=== PATIENT | male | born 1950 | race Caucasian/White ===

== ENCOUNTER 2024-08-16 14:16 | Inpatient (IN) | payer MEDICARE ==
[~2024-08-16] VITALS: Ht 177.8 cm; Wt 80.2 kg
[2024-08-16 21:30] VITALS: BP 154/80; PULSE 71; RESP 18; TEMP 98.5; O2SAT 98
[2024-08-16] MEDS ORDERED: MELATONIN 5 MG TABLET PO PRN (22:45)
[2024-08-16] MEDS ORDERED: BISACODYL 10 MG RECTAL RECTAL SUPPOSITORY PR PRN (23:15)
[2024-08-16] MEDS: DOCUSATE SODIUM 250 MG CAPSULE PO SCH (23:15)
[2024-08-16] MEDS: ETHYL ALCOHOL 62% ANTISEPTIC NASAL SANITIZER 0.6 ML AMPUL NASAL SCH (23:41)
[2024-08-16] MEDS: MELATONIN 5 MG TABLET PO SCH (23:42)
[2024-08-16] MEDS: FAMOTIDINE 20 MG TABLET PO SCH (23:42)
[2024-08-16] MEDS: CEPHALEXIN MONOHYDRATE 500 MG CAPSULE PO SCH (23:44)
[2024-08-16] MEDS: HYDROCORTISONE SOD SUCC 100 MG/2 ML VIAL IVP SCH (23:44)
[2024-08-16] MEDS: QUEtiapine FUMARATE 25 MG TABLET PO SCH (23:44)
[2024-08-16] MEDS: ACETAMINOPHEN 325 MG TABLET PO SCH (23:46)
[2024-08-17 00:06] LABS: APPEARANCE,URINE CLEAR (CLEAR); BILIRUBIN,URINE NEGATIVE (NEGATIVE); COLOR,URINE YELLOW (YELLOW); GLUCOSE, URINE (UA) NEGATIVE (NEGATIVE); KETONES,URINE NEGATIVE (NEGATIVE); LEUKOCYTE ESTERASE ,URINE NEGATIVE (NEGATIVE); NITRATE,URINE NEGATIVE (NEGATIVE); OCCULT BLOOD,URINE NEGATIVE (NEGATIVE); PH,URINE 5.5 (5.0-8.0); PROTEIN,URINE TRACE mg/dL (NEGATIVE); SPECIFIC GRAVITIY, URINE 1.023 (1.003-1.030); UROBILINOGEN,URINE <=1.0 mg/dL (<=1.0)
[2024-08-17 00:31] LABS: BACTERIA,URINE None Seen /HPF (None Seen); RBC,URINE None Seen /HPF (0-2); SQUAMOUS EPITHELIAL CELL,UR None Seen /LPF (None Seen); WBC,URINE None Seen /HPF (0-5)
[2024-08-17] MEDS ORDERED: DEXTROSE 50%-WATER 25 GM/50 ML SYRINGE IVP PRN (01:15)
[2024-08-17] MEDS: INFLUENZA VIRUS VACCINE TVS (6MO+) 2024-25/PF 45 MCG/0.5 ML SYRINGE IM. ONE (04:30)
[2024-08-17 07:15] LABS: GLUCOMETER DEV NAME(LOC) 2WR.1D; GLUCOSE,POINT OF CARE 203 MG/DL (70-110)
[2024-08-17 08:00] VITALS: BP 132/69; PULSE 66; RESP 18; TEMP 97.8; O2SAT 97
[2024-08-17] MEDS: INSULIN LISPRO 100 UNITS/ML SQ PRN (08:17)
[2024-08-17] MEDS: TAMSULOSIN HCL 0.4 MG CAPSULE PO SCH (08:38)
[2024-08-17] MEDS: ENOXAPARIN SODIUM 40 MG/0.4 ML PF SYRINGE SQ SCH (08:39)
[2024-08-17] MEDS: 0.9% SODIUM CHLORIDE 10 ML SYRINGE IVP SCH (08:40)
[2024-08-17] MEDS: LIDOCAINE 5% TRANSDERMAL PATCH TD SCH (08:40)
[2024-08-17 08:50] LABS: ALANINE AMINOTRANSFERASE 31 U/L (12-78); ALKALINE PHOSPHATASE 93 U/L (46-116); ASPARTATE AMINOTRANSFERASE 26 U/L (15-37); BILIRUBIN,TOTAL 0.7 mg/dL (0.1-1.0); CALCIUM, TOTAL 9.1 mg/dL (8.8-10.5); CARBON DIOXIDE 29 mmol/L (22-29); CREATININE 0.86 mg/dL (0.60-1.30); GLOMERULAR FILTR. RATE CALC > 60 mL/min (>60); GLUCOSE,RANDOM 198 mg/dL (70-110); TOTAL PROTEIN, SERUM 6.5 g/dL (6.4-8.2); UREA NITROGEN, BLOOD 19 mg/dL (7-18)
[2024-08-17 08:53] LABS: BASOPHILS % (AUTO) 0.6 % (0.0-2.0); EOSINOPHILS % (AUTO) 0.1 % (1.0-6.0); HEMATOCRIT 41.2 % (41-53); HEMOGLOBIN 13.9 g/dL (13.5-17.5); LYMPHOCYTES # (AUTO) 0.9 K/uL (1.0-4.8); LYMPHOCYTES % (AUTO) 13.8 % (22.0-44.0); MEAN CORPUSCULAR HEMOGLOBIN 32.3 pg (26.0-34.0); MEAN CORPUSCULAR HGB CONC 33.8 G/dL (31.0-37.0); MEAN CORPUSCULAR VOLUME 96 fL (80-100); MONOCYTES # (AUTO) 0.3 K/uL (0.1-1.0); MONOCYTES % (AUTO) 3.9 % (2.0-9.0); NEUTROPHILS # (AUTO) 5.5 K/uL (1.8-7.7); NEUTROPHILS % (AUTO) 81.6 % (40.0-70.0); PLATELET COUNT (AUTO) 252 K/uL (150-450); RED BLOOD CELL COUNT(AUTO) 4.31 MIL/uL (4.50-5.90); RED CELL DISTRIBUTION WIDTH 14.2 % (11.5-14.5); WHITE BLOOD COUNT (AUTO) 6.7 K/uL (4.5-11.0)
[2024-08-17] MEDS: HYDROCORTISONE 5 MG TABLET PO SCH ×2 (09:00→16:22)
[2024-08-17 09:17] LABS: ANION GAP 9 mmol/L (8-16); CHLORIDE 104 mmol/L (98-107); POTASSIUM 4.4 mmol/L (3.5-5.1); SODIUM SERUM 142 mmol/L (136-145)
[2024-08-17 11:45] LABS: GLUCOMETER DEV NAME(LOC) 2WR.1D; GLUCOSE,POINT OF CARE 182 MG/DL (70-110)
[2024-08-17 17:25] LABS: GLUCOMETER DEV NAME(LOC) 2WR.1D; GLUCOSE,POINT OF CARE 210 MG/DL (70-110)
[2024-08-17] MEDS: -LIDODERM PATCH NOTE- MISC SCH (19:27)
[2024-08-17 19:35] VITALS: BP 106/57; PULSE 72; RESP 18; TEMP 98.2; O2SAT 98
[2024-08-17] MEDS: SENNOSIDES 8.6 MG TABLET PO SCH (19:38)
[2024-08-17 21:21] LABS: GLUCOMETER DEV NAME(LOC) 2WR.1D; GLUCOSE,POINT OF CARE 142 MG/DL (70-110)
[2024-08-17 22:33] VITALS: O2SAT 98
[2024-08-18 06:46] LABS: GLUCOMETER DEV NAME(LOC) 2WR.1D; GLUCOSE,POINT OF CARE 131 MG/DL (70-110)
[2024-08-18 09:55] VITALS: BP 95/29; PULSE 67; RESP 18; TEMP 97.5; O2SAT 98
[2024-08-18 11:56] LABS: GLUCOMETER DEV NAME(LOC) 2WR.1D; GLUCOSE,POINT OF CARE 159 MG/DL (70-110)
[2024-08-18 17:55] LABS: GLUCOMETER DEV NAME(LOC) 2WR.1D; GLUCOSE,POINT OF CARE 178 MG/DL (70-110)
[2024-08-18] MEDS: TAMSULOSIN HCL 0.4 MG CAPSULE PO SCH (21:11)
[2024-08-18] MEDS: QUEtiapine FUMARATE 25 MG TABLET PO SCH (21:12)
[2024-08-18] MEDS: COLD CREAM, SKIN EMOLLIENT 340 GM JAR TP SCH (21:13)
[2024-08-18 21:33] VITALS: BP 123/68; PULSE 76; RESP 18; TEMP 98.2; O2SAT 100
[2024-08-18 22:11] LABS: GLUCOMETER DEV NAME(LOC) 2WR.1D; GLUCOSE,POINT OF CARE 116 MG/DL (70-110)
[2024-08-18 22:33] VITALS: O2SAT 100
[2024-08-19 06:31] LABS: GLUCOMETER DEV NAME(LOC) 2WR.1D; GLUCOSE,POINT OF CARE 91 MG/DL (70-110)
[2024-08-19 08:00] VITALS: BP 125/61; PULSE 69; RESP 18; TEMP 98.2; O2SAT 98
[2024-08-19 12:00] LABS: GLUCOMETER DEV NAME(LOC) 2WR.2B; GLUCOSE,POINT OF CARE 165 MG/DL (70-110)
[2024-08-19 17:55] LABS: GLUCOMETER DEV NAME(LOC) 2WR.1D; GLUCOSE,POINT OF CARE 163 MG/DL (70-110)
[2024-08-19 20:00] VITALS: BP 123/70; PULSE 69; RESP 18; TEMP 98.1; O2SAT 99
[2024-08-19] MEDS: QUEtiapine FUMARATE 25 MG TABLET PO SCH (20:57)
[2024-08-19 23:35] LABS: GLUCOMETER DEV NAME(LOC) 2WR.2B; GLUCOSE,POINT OF CARE 110 MG/DL (70-110)
[2024-08-20 07:06] LABS: GLUCOMETER DEV NAME(LOC) 2WR.2B; GLUCOSE,POINT OF CARE 105 MG/DL (70-110)
[2024-08-20 08:00] VITALS: BP 132/74; PULSE 62; RESP 18; TEMP 98.3; O2SAT 100
[2024-08-20 12:25] LABS: GLUCOMETER DEV NAME(LOC) 2WR.2B; GLUCOSE,POINT OF CARE 138 MG/DL (70-110)
[2024-08-20 17:16] LABS: GLUCOMETER DEV NAME(LOC) 2WR.2B; GLUCOSE,POINT OF CARE 195 MG/DL (70-110)
[2024-08-20 20:00] VITALS: BP 120/75; PULSE 63; RESP 18; TEMP 98.4; O2SAT 100
[2024-08-20 21:11] LABS: GLUCOMETER DEV NAME(LOC) 2WR.2B; GLUCOSE,POINT OF CARE 98 MG/DL (70-110)
[2024-08-20] MEDS: INSULIN GLARGINE,HUM.REC.ANLOG 100 UNITS/ML SQ SCH (21:33)
[2024-08-21 07:36] LABS: GLUCOMETER DEV NAME(LOC) 2WR.2B; GLUCOSE,POINT OF CARE 90 MG/DL (70-110)
[2024-08-21 08:05] VITALS: BP 110/60; PULSE 65; RESP 18; TEMP 97.9; O2SAT 96
[2024-08-21 12:30] LABS: GLUCOMETER DEV NAME(LOC) 2WR.2B; GLUCOSE,POINT OF CARE 175 MG/DL (70-110)
[2024-08-21 17:30] LABS: GLUCOMETER DEV NAME(LOC) 2WR.1D; GLUCOSE,POINT OF CARE 117 MG/DL (70-110)
[2024-08-21 19:31] VITALS: BP 129/65; PULSE 69; RESP 18; TEMP 98.3; O2SAT 98
[2024-08-21 20:00] VITALS: O2SAT 98
[2024-08-21 20:45] LABS: GLUCOMETER DEV NAME(LOC) 2WR.2B; GLUCOSE,POINT OF CARE 176 MG/DL (70-110)
[2024-08-22 07:06] LABS: GLUCOMETER DEV NAME(LOC) 2WR.1D; GLUCOSE,POINT OF CARE 96 MG/DL (70-110)
[2024-08-22 08:05] VITALS: BP 116/61; PULSE 69; RESP 18; TEMP 98.4; O2SAT 98
[2024-08-22 12:30] LABS: GLUCOMETER DEV NAME(LOC) 2WR.2B; GLUCOSE,POINT OF CARE 181 MG/DL (70-110)
[2024-08-22 12:40] VITALS: O2SAT 98
[2024-08-22 17:36] LABS: GLUCOMETER DEV NAME(LOC) 2WR.2B; GLUCOSE,POINT OF CARE 128 MG/DL (70-110)
[2024-08-22 20:00] VITALS: BP 117/86; PULSE 62; RESP 18; TEMP 97.5; O2SAT 99
[2024-08-23 02:20] LABS: GLUCOMETER DEV NAME(LOC) 2WR.1D; GLUCOSE,POINT OF CARE 147 MG/DL (70-110)
[2024-08-23 06:35] LABS: GLUCOMETER DEV NAME(LOC) 2WR.1D; GLUCOSE,POINT OF CARE 105 MG/DL (70-110)
[2024-08-23 08:00] VITALS: BP 126/69; PULSE 60; RESP 19; TEMP 98.1; O2SAT 98
[2024-08-23 13:30] LABS: GLUCOMETER DEV NAME(LOC) 2WR.2B; GLUCOSE,POINT OF CARE 116 MG/DL (70-110)
[2024-08-23 17:46] LABS: GLUCOMETER DEV NAME(LOC) 2WR.1D; GLUCOSE,POINT OF CARE 165 MG/DL (70-110)
[2024-08-23 20:00] VITALS: BP 125/72; PULSE 69; RESP 18; TEMP 98.1; O2SAT 98
[2024-08-23 21:05] LABS: GLUCOMETER DEV NAME(LOC) 2WR.2B; GLUCOSE,POINT OF CARE 130 MG/DL (70-110)
[2024-08-24 04:01] VITALS: O2SAT 98
[2024-08-24 07:21] LABS: GLUCOMETER DEV NAME(LOC) 2WR.2B; GLUCOSE,POINT OF CARE 93 MG/DL (70-110)
[2024-08-24 08:00] VITALS: BP 87/48; PULSE 73; RESP 18; TEMP 97.8; O2SAT 99
[2024-08-24 08:10] VITALS: BP 106/46; PULSE 73; RESP 18
[2024-08-24 13:00] LABS: GLUCOMETER DEV NAME(LOC) 2WR.1D; GLUCOSE,POINT OF CARE 130 MG/DL (70-110)
[2024-08-24 18:21] LABS: GLUCOMETER DEV NAME(LOC) 2WR.2B; GLUCOSE,POINT OF CARE 135 MG/DL (70-110)
[2024-08-24 20:02] VITALS: BP 122/73; PULSE 75; RESP 18; TEMP 98.5; O2SAT 98
[2024-08-24 23:36] VITALS: O2SAT 98
[2024-08-25 08:00] VITALS: BP 117/44; PULSE 66; RESP 18; TEMP 97.5; O2SAT 97
[2024-08-25 13:06] LABS: GLUCOMETER DEV NAME(LOC) 2WR.2B; GLUCOSE,POINT OF CARE 146 MG/DL (70-110)
[2024-08-25] MEDS: MetFORMIN HCL 500 MG TABLET PO SCH (16:26)
[2024-08-25 16:46] LABS: GLUCOMETER DEV NAME(LOC) 2WR.1D; GLUCOSE,POINT OF CARE 83 MG/DL (70-110)
[2024-08-25 16:50] LABS: GLUCOMETER DEV NAME(LOC) 2WR.2B; GLUCOSE,POINT OF CARE 125 MG/DL (70-110)
[2024-08-25 20:00] VITALS: BP 113/48; PULSE 65; RESP 18; TEMP 97.9; O2SAT 97
[2024-08-25 23:25] LABS: GLUCOMETER DEV NAME(LOC) 2WR.1D; GLUCOSE,POINT OF CARE 118 MG/DL (70-110)
[2024-08-26] MEDS ORDERED: HYDR5TAB8 PO ×2 (07:25)
[2024-08-26] MEDS ORDERED: TAMS0.4C94 PO (07:25)
[2024-08-26] MEDS ORDERED: METF-1211 PO (07:31)
[2024-08-26 07:36] LABS: GLUCOMETER DEV NAME(LOC) 2WR.2B; GLUCOSE,POINT OF CARE 96 MG/DL (70-110)
[2024-08-26] MEDS: MetFORMIN HCL 500 MG TABLET PO SCH (07:49)
[2024-08-26 08:03] VITALS: BP 120/63; PULSE 59; RESP 18; TEMP 98; O2SAT 96
[2024-08-26 13:46] LABS: GLUCOMETER DEV NAME(LOC) 2WR.2B; GLUCOSE,POINT OF CARE 156 MG/DL (70-110)
[2024-08-26 18:20] LABS: GLUCOMETER DEV NAME(LOC) 2WR.2B; GLUCOSE,POINT OF CARE 130 MG/DL (70-110)
[2024-08-26 20:15] VITALS: BP 115/63; PULSE 67; RESP 18; TEMP 98.1; O2SAT 98
[2024-08-26 21:21] VITALS: O2SAT 98
[2024-08-26 22:51] LABS: GLUCOMETER DEV NAME(LOC) 2WR.2B; GLUCOSE,POINT OF CARE 148 MG/DL (70-110)
[2024-08-27 06:36] LABS: GLUCOMETER DEV NAME(LOC) 2WR.2B; GLUCOSE,POINT OF CARE 91 MG/DL (70-110)
[2024-08-27 08:06] VITALS: BP 142/84; PULSE 61; RESP 17; TEMP 98; O2SAT 99
[2024-08-27 12:35] LABS: GLUCOMETER DEV NAME(LOC) 2WR.2B; GLUCOSE,POINT OF CARE 114 MG/DL (70-110)
== END 2024-08-27 13:00 | disposition home health service (06) | DRG 70 ==
LOC: 2WR 19:30
PROVIDERS: ADMIT Physical Medicine & Rehabilitation; ATTEND Physical Medicine & Rehabilitation
DX: G93.40 Encephalopathy, unspecified (principal); E11.10 Type 2 diabetes mellitus with ketoacidosis without coma; G83.4 Cauda equina syndrome; N39.0 Urinary tract infection, site not specified; R78.81 Bacteremia; E27.40 Unspecified adrenocortical insufficiency; F05 Delirium due to known physiological condition; R13.12 Dysphagia, oropharyngeal phase; R62.7 Adult failure to thrive; Z74.09 Other reduced mobility; E11.40 Type 2 diabetes mellitus with diabetic neuropathy, unspecified; E23.6 Other disorders of pituitary gland; E03.8 Other specified hypothyroidism; R41.89 Other symptoms and signs involving cognitive functions and awareness; R26.81 Unsteadiness on feet; R41.3 Other amnesia; R45.86 Emotional lability; R79.82 Elevated C-reactive protein (CRP); R20.2 Paresthesia of skin; R13.10 Dysphagia, unspecified; R41.0 Disorientation, unspecified; R33.9 Retention of urine, unspecified; N40.1 Benign prostatic hyperplasia with lower urinary tract symptoms; R53.1 Weakness; R53.83 Other fatigue; D72.829 Elevated white blood cell count, unspecified; Z79.84 Long term (current) use of oral hypoglycemic drugs; Z68.25 Body mass index [BMI] 25.0-25.9, adult
CPT/HCPCS: 80053; 81001; 82962; 85025; 87081; 92507; 92523; 97110; 97112; 97116; 97163; 97167; 97530; 97535; 99366; J1650; J1720; J1815

== ENCOUNTER 2024-11-15 15:50 | Inpatient (IN) | payer MEDICARE ==
[~2024-11-15] VITALS: Ht 175.3 cm; Wt 78.0 kg
[~2024-11-15 15:50] MED LIST: HYDR5TAB8 PO; METF-1211 PO; TAMS0.4C94 PO
[2024-11-15 19:00] VITALS: BP 140/65; PULSE 72; RESP 18; TEMP 98.4; O2SAT 98
[2024-11-15] MEDS ORDERED: DEXTROSE 50%-WATER 25 GM/50 ML SYRINGE IVP PRN (19:30)
[2024-11-15] MEDS ORDERED: FURO20TA5 PO (19:40)
[2024-11-15] MEDS ORDERED: ATOR20TA65 PO (19:40)
[2024-11-15] MEDS ORDERED: RIVA20TA PO (19:40)
[2024-11-15 20:00] VITALS: O2SAT 98
[2024-11-15] MEDS: ETHYL ALCOHOL 62% ANTISEPTIC NASAL SANITIZER 0.6 ML AMPUL NASAL SCH (21:57)
[2024-11-15] MEDS: GABAPENTIN 300 MG CAPSULE PO SCH (21:57)
[2024-11-15] MEDS: INSULIN LISPRO 100 UNITS/ML SQ PRN (22:36)
[2024-11-15 22:55] LABS: GLUCOMETER DEV NAME(LOC) 2WR.1D; GLUCOSE,POINT OF CARE 237 MG/DL (70-110)
[2024-11-16 07:00] LABS: GLUCOMETER DEV NAME(LOC) 2WR.1D; GLUCOSE,POINT OF CARE 106 MG/DL (70-110)
[2024-11-16 08:00] VITALS: BP 92/54; PULSE 70; RESP 18; TEMP 98.6; O2SAT 100
[2024-11-16 08:30] VITALS: BP 86/53; PULSE 53; RESP 18; O2SAT 97
[2024-11-16] MEDS: MULTIVITAMINS WITH MINERALS, THERAPEUTIC TABLET PO SCH (08:47)
[2024-11-16] MEDS: FUROSEMIDE 20 MG TABLET PO SCH (08:47)
[2024-11-16] MEDS: MetFORMIN HCL 500 MG TABLET PO SCH (08:47)
[2024-11-16] MEDS: HYDROCORTISONE 10 MG TABLET PO SCH (08:48)
[2024-11-16 09:00] VITALS: BP 102/54; PULSE 65; RESP 18; O2SAT 98
[2024-11-16 12:37] LABS: BASOPHILS % (AUTO) 1.2 % (0.0-2.0); EOSINOPHILS % (AUTO) 3.9 % (1.0-6.0); HEMATOCRIT 34.7 % (41-53); HEMOGLOBIN 11.9 g/dL (13.5-17.5); LYMPHOCYTES # (AUTO) 2.1 K/uL (1.0-4.8); LYMPHOCYTES % (AUTO) 27.8 % (22.0-44.0); MEAN CORPUSCULAR HEMOGLOBIN 30.4 pg (26.0-34.0); MEAN CORPUSCULAR HGB CONC 34.2 G/dL (31.0-37.0); MEAN CORPUSCULAR VOLUME 89 fL (80-100); MONOCYTES # (AUTO) 0.7 K/uL (0.1-1.0); MONOCYTES % (AUTO) 9.7 % (2.0-9.0); NEUTROPHILS # (AUTO) 4.4 K/uL (1.8-7.7); NEUTROPHILS % (AUTO) 57.4 % (40.0-70.0); PLATELET COUNT (AUTO) 353 K/uL (150-450); RED BLOOD CELL COUNT(AUTO) 3.92 MIL/uL (4.50-5.90); RED CELL DISTRIBUTION WIDTH 12.8 % (11.5-14.5); WHITE BLOOD COUNT (AUTO) 7.7 K/uL (4.5-11.0)
[2024-11-16 13:27] LABS: ALANINE AMINOTRANSFERASE 30 U/L (12-78); ALKALINE PHOSPHATASE 222 U/L (46-116); ANION GAP 3 mmol/L (8-16); ASPARTATE AMINOTRANSFERASE 20 U/L (15-37); BILIRUBIN,TOTAL 0.5 mg/dL (0.1-1.0); CARBON DIOXIDE 32 mmol/L (22-29); CHLORIDE 103 mmol/L (98-107); CREATININE 0.74 mg/dL (0.60-1.30); GLOMERULAR FILTR. RATE CALC > 60 mL/min (>60); GLUCOSE,RANDOM 122 mg/dL (70-110); POTASSIUM 3.6 mmol/L (3.5-5.1); SODIUM SERUM 138 mmol/L (136-145); TOTAL PROTEIN, SERUM 6.6 g/dL (6.4-8.2); UREA NITROGEN, BLOOD 18 mg/dL (7-18)
[2024-11-16 13:36] LABS: GLUCOMETER DEV NAME(LOC) 2WR.2B; GLUCOSE,POINT OF CARE 116 MG/DL (70-110)
[2024-11-16] MEDS: HYDROCORTISONE 5 MG TABLET PO SCH (15:40)
[2024-11-16] MEDS: RIVAROXABAN 20 MG TABLET PO SCH (17:48)
[2024-11-16 18:06] LABS: GLUCOMETER DEV NAME(LOC) 2WR.2B; GLUCOSE,POINT OF CARE 113 MG/DL (70-110)
[2024-11-16 20:00] VITALS: BP 104/52; PULSE 66; RESP 18; TEMP 98.2; O2SAT 99
[2024-11-16] MEDS: TAMSULOSIN HCL 0.4 MG CAPSULE PO SCH (21:12)
[2024-11-16 22:21] LABS: GLUCOMETER DEV NAME(LOC) 2WR.1D; GLUCOSE,POINT OF CARE 144 MG/DL (70-110)
[2024-11-17 07:16] LABS: GLUCOMETER DEV NAME(LOC) 2WR.2B; GLUCOSE,POINT OF CARE 83 MG/DL (70-110)
[2024-11-17 08:00] VITALS: BP 89/32; PULSE 68; RESP 18; TEMP 98.2; O2SAT 98
[2024-11-17 09:00] VITALS: BP 121/54; PULSE 63; RESP 18
[2024-11-17 12:41] LABS: GLUCOMETER DEV NAME(LOC) 2WR.2B; GLUCOSE,POINT OF CARE 112 MG/DL (70-110)
[2024-11-17] MEDS: BACLOFEN 10 MG TABLET PO SCH (12:46)
[2024-11-17 17:26] LABS: GLUCOMETER DEV NAME(LOC) 2WR.2B; GLUCOSE,POINT OF CARE 128 MG/DL (70-110)
[2024-11-17 20:00] VITALS: BP 117/50; PULSE 71; RESP 18; TEMP 98.6; O2SAT 99
[2024-11-17 20:45] LABS: GLUCOMETER DEV NAME(LOC) 2WR.2B; GLUCOSE,POINT OF CARE 171 MG/DL (70-110)
[2024-11-18] MEDS: MELATONIN 3 MG TABLET PO PRN (00:08)
[2024-11-18 06:30] VITALS: BP 106/56; PULSE 66; RESP 18; O2SAT 96
[2024-11-18 06:30] LABS: GLUCOMETER DEV NAME(LOC) 2WR.2B; GLUCOSE,POINT OF CARE 102 MG/DL (70-110)
[2024-11-18 08:00] VITALS: BP 96/53; PULSE 67; RESP 18; TEMP 98; O2SAT 99
[2024-11-18 09:15] VITALS: BP 117/62; PULSE 63; RESP 17; O2SAT 100
[2024-11-18 12:41] LABS: GLUCOMETER DEV NAME(LOC) 2WR.2B; GLUCOSE,POINT OF CARE 134 MG/DL (70-110)
[2024-11-18 17:20] LABS: GLUCOMETER DEV NAME(LOC) 2WR.2B; GLUCOSE,POINT OF CARE 118 MG/DL (70-110)
[2024-11-18 20:00] VITALS: BP 128/63; PULSE 79; RESP 18; TEMP 98.2; O2SAT 99
[2024-11-18 21:06] LABS: GLUCOMETER DEV NAME(LOC) 2WR.2B; GLUCOSE,POINT OF CARE 124 MG/DL (70-110)
[2024-11-18 21:29] VITALS: O2SAT 99
[2024-11-19] MEDS: ACETAMINOPHEN 325 MG TABLET PO PRN (02:08)
[2024-11-19 06:26] LABS: GLUCOMETER DEV NAME(LOC) 2WR.1D; GLUCOSE,POINT OF CARE 99 MG/DL (70-110)
[2024-11-19 08:00] VITALS: BP 98/53; PULSE 64; RESP 18; TEMP 97.9; O2SAT 100
[2024-11-19 11:30] VITALS: BP 116/57; PULSE 67; RESP 16
[2024-11-19 12:41] LABS: GLUCOMETER DEV NAME(LOC) 2WR.1D; GLUCOSE,POINT OF CARE 119 MG/DL (70-110)
[2024-11-19 17:55] LABS: GLUCOMETER DEV NAME(LOC) 2WR.1D; GLUCOSE,POINT OF CARE 143 MG/DL (70-110)
[2024-11-19 19:45] VITALS: BP 114/78; PULSE 69; RESP 18; TEMP 98.4; O2SAT 98
[2024-11-19 22:31] LABS: GLUCOMETER DEV NAME(LOC) 2WR.1D; GLUCOSE,POINT OF CARE 114 MG/DL (70-110)
[2024-11-20 03:23] VITALS: O2SAT 98
[2024-11-20 07:01] LABS: GLUCOMETER DEV NAME(LOC) 2WR.2B; GLUCOSE,POINT OF CARE 99 MG/DL (70-110)
[2024-11-20 08:00] VITALS: BP 105/46; PULSE 63; RESP 18; TEMP 97.5; O2SAT 97
[2024-11-20] MEDS: DOCUSATE SODIUM 250 MG CAPSULE PO SCH (08:16)
[2024-11-20 11:45] LABS: GLUCOMETER DEV NAME(LOC) 2WR.2B; GLUCOSE,POINT OF CARE 152 MG/DL (70-110)
[2024-11-20] MEDS: BACLOFEN 10 MG TABLET PO SCH (16:46)
[2024-11-20 17:36] LABS: GLUCOMETER DEV NAME(LOC) 2WR.2B; GLUCOSE,POINT OF CARE 111 MG/DL (70-110)
[2024-11-20 20:00] VITALS: BP 108/54; PULSE 75; RESP 18; TEMP 98.4; O2SAT 99
[2024-11-20 21:35] LABS: GLUCOMETER DEV NAME(LOC) 2WR.1D; GLUCOSE,POINT OF CARE 123 MG/DL (70-110)
[2024-11-21 06:45] LABS: GLUCOMETER DEV NAME(LOC) 2WR.1D; GLUCOSE,POINT OF CARE 97 MG/DL (70-110)
[2024-11-21 08:00] VITALS: BP 98/51; PULSE 66; RESP 18; TEMP 98.1; O2SAT 97
[2024-11-21 11:56] LABS: GLUCOMETER DEV NAME(LOC) 2WR.1D; GLUCOSE,POINT OF CARE 113 MG/DL (70-110)
[2024-11-21 18:06] LABS: GLUCOMETER DEV NAME(LOC) 2WR.2B; GLUCOSE,POINT OF CARE 118 MG/DL (70-110)
[2024-11-21 20:00] VITALS: BP 110/54; PULSE 81; RESP 20; TEMP 98.6; O2SAT 99
[2024-11-21 20:55] LABS: GLUCOMETER DEV NAME(LOC) 2WR.2B; GLUCOSE,POINT OF CARE 149 MG/DL (70-110)
[2024-11-22 07:25] LABS: GLUCOMETER DEV NAME(LOC) 2WR.2B; GLUCOSE,POINT OF CARE 84 MG/DL (70-110)
[2024-11-22 08:14] VITALS: BP 115/55; PULSE 65; RESP 18; TEMP 97.5; O2SAT 97
[2024-11-22 11:40] LABS: GLUCOMETER DEV NAME(LOC) 2WR.2B; GLUCOSE,POINT OF CARE 104 MG/DL (70-110)
[2024-11-22] MEDS: BACLOFEN 10 MG TABLET PO SCH (16:54)
[2024-11-22 17:25] LABS: GLUCOMETER DEV NAME(LOC) 2WR.2B; GLUCOSE,POINT OF CARE 140 MG/DL (70-110)
[2024-11-22 20:00] VITALS: BP 110/54; PULSE 65; RESP 18; TEMP 98.1; O2SAT 98
[2024-11-22 20:45] LABS: GLUCOMETER DEV NAME(LOC) 2WR.2B; GLUCOSE,POINT OF CARE 126 MG/DL (70-110)
[2024-11-23 06:31] LABS: GLUCOMETER DEV NAME(LOC) 2WR.2B; GLUCOSE,POINT OF CARE 86 MG/DL (70-110)
[2024-11-23 08:00] VITALS: BP 134/55; PULSE 59; RESP 20; TEMP 98.2; O2SAT 99
[2024-11-23 12:41] LABS: GLUCOMETER DEV NAME(LOC) 2WR.2B; GLUCOSE,POINT OF CARE 126 MG/DL (70-110)
[2024-11-23 17:20] LABS: GLUCOMETER DEV NAME(LOC) 2WR.2B; GLUCOSE,POINT OF CARE 122 MG/DL (70-110)
[2024-11-23 19:44] VITALS: BP 118/45; PULSE 65; RESP 18; TEMP 97.3; O2SAT 99
[2024-11-23 21:20] LABS: GLUCOMETER DEV NAME(LOC) 2WR.2B; GLUCOSE,POINT OF CARE 125 MG/DL (70-110)
[2024-11-24 00:17] VITALS: O2SAT 99
[2024-11-24 07:51] LABS: GLUCOMETER DEV NAME(LOC) 2WR.2B; GLUCOSE,POINT OF CARE 92 MG/DL (70-110)
[2024-11-24 08:00] VITALS: BP 127/51; PULSE 53; RESP 18; TEMP 97.9; O2SAT 98
[2024-11-24 12:26] LABS: GLUCOMETER DEV NAME(LOC) 2WR.1D; GLUCOSE,POINT OF CARE 110 MG/DL (70-110)
[2024-11-24] MEDS ORDERED: DOCU-412 PO (12:27)
[2024-11-24] MEDS ORDERED: MULT-1303 PO (12:27)
[2024-11-24] MEDS ORDERED: BACL10TA PO (12:27)
[2024-11-24] MEDS ORDERED: HYDR-3887 PO (12:27)
[2024-11-24] MEDS ORDERED: TAMS0.4C94 PO (12:27)
[2024-11-24] MEDS ORDERED: FURO20TA4 PO (12:27)
[2024-11-24] MEDS ORDERED: HYDR5TAB8 PO (12:27)
[2024-11-24] MEDS ORDERED: GABA-1181 PO (12:27)
[2024-11-24] MEDS ORDERED: METF-1211 PO (12:27)
[2024-11-24] MEDS ORDERED: RIVA20TA PO (12:27)
== END 2024-11-24 15:08 | disposition home health service (06) | DRG 689 ==
LOC: 2WR 15:50
PROVIDERS: ADMIT Physical Medicine & Rehabilitation; ATTEND Physical Medicine & Rehabilitation
DX: N39.0 Urinary tract infection, site not specified (principal); E43 Unspecified severe protein-calorie malnutrition; G83.4 Cauda equina syndrome; E27.49 Other adrenocortical insufficiency; N17.9 Acute kidney failure, unspecified; R78.81 Bacteremia; R53.81 Other malaise; R33.8 Other retention of urine; N40.1 Benign prostatic hyperplasia with lower urinary tract symptoms; Z74.09 Other reduced mobility; R26.9 Unspecified abnormalities of gait and mobility; K29.80 Duodenitis without bleeding; E11.9 Type 2 diabetes mellitus without complications; I95.9 Hypotension, unspecified; M79.10 Myalgia, unspecified site; M24.552 Contracture, left hip; M24.551 Contracture, right hip; B96.89 Other specified bacterial agents as the cause of diseases classified elsewhere; Z85.841 Personal history of malignant neoplasm of brain; Z87.440 Personal history of urinary (tract) infections; Z98.1 Arthrodesis status; Z68.25 Body mass index [BMI] 25.0-25.9, adult
CPT/HCPCS: 80053; 82962; 85025; 87081; 97110; 97112; 97116; 97150; 97163; 97167; 97530; 97535; 99366